=== PATIENT | female | born 1970 | race Caucasian/White ===

== ENCOUNTER → 2023-10-19 | Outpatient (CLI) | payer OTHER ==
--- NOTE | 2023-10-20 20:46 | MM ---
Reason for Exam: Screening (asymptomatic). Last mammogram was performed 5 year(s) and 7 month(s) ago. Patient History: Menarche at age 10. First Full-Term at age 17. Postmenopausal. Maternal grandmother had breast cancer. Risk Values: Andreina 5 year model risk: 0.8%. NCI Lifetime model risk: 6.1%. Prior Study Comparison: 10/12/2007 Bilateral Screening Mammogram, [facility]. 03/09/2018 Bilateral Screening Mammogram, [facility]. Tissue Density: There are scattered fibroglandular densities. Findings: Analyzed By CAD. Chronic nodularity on the left. There is no suspicious group of microcalcifications or new suspicious mass in either breast. Overall Assessment: Benign, BI-RAD 2 Management: Screening Mammogram of both breasts in 1 year. . Patient should continue monthly self-breast exams. A clinical breast exam by your physician is recommended on an annual basis. This exam should not preclude additional follow-up of suspicious palpable abnormalities. Note on Andreina scores and lifetime risk: 1. A Andreina score greater than 3% is considered moderate risk. If this is the case, consider specialist referral to assess eligibility for a risk reducing agent. 2. If overall lifetime risk for the development of breast cancer is 20% or higher, the patient may qualify for future screening with alternating mammogram and breast MRI. Electronically signed and approved by: Magalys Guerra M.D. Radiologist
== END | disposition home or self-care (01) ==
LOC: RADMAMWWP 15:28
PROVIDERS: ATTEND Obstetrics & Gynecology
DX: Z12.31 Encounter for screening mammogram for malignant neoplasm of breast (principal); Z80.3 Family history of malignant neoplasm of breast; Z78.0 Asymptomatic menopausal state
CPT/HCPCS: 77067

== ENCOUNTER → 2023-11-13 | Outpatient (CLI) | payer OTHER ==
--- NOTE | 2023-11-15 17:55 | MR ---
EXAMINATION TYPE: MR knee RT wo con DATE OF EXAM: 11/13/2023 COMPARISON: None HISTORY: 53-year-old female M25.561 Right knee pain/injury. TECHNIQUE: Multiplanar, multisequence imaging of the right knee is performed without IV contrast. FINDINGS: The ACL and PCL are intact. There is some thickening and inhomogeneous signal along the femoral attachment of the MCL suggesting a low-grade sprain. Similar findings are present at the femoral attachment of the LCL proper. LCL complex are otherwise i ntact. Lateral meniscus is intact. Mild diffuse thinning of lateral compartment articular cartilage volume. Medial meniscus shows abnormal signal throughout the posterior horn and body suggesting underlying me niscal tear. Mild diffuse thinning of medial compartment articular cartilage volume. There is moderate irregular cartilage loss along the mid patella. More moderate to severe irregular c artilage loss along the lateral trochlear facet with extensive disc of chondrosis cystic change. Less er degree of irregular cartilage loss and cystic change at the medial trochlear facet. Extensor mechanism is intact. Some mild inhomogeneous signal of the quadriceps insertion. Prepatellar soft tissue swelling. Some focal edema in Hoffa's fat located inferior and lateral to the patella. Small knee joint effusio n. No sizable Bennett's cyst. Normal popliteal artery anatomy and muscle bulk. No suspicious bone marrow replacement. IMPRESSION: 1. Grade 1 MCL sprain at the femoral attachment. Additional grade 1 sprain of the LCL proper at the f emoral attachment. 2. Tear of the posterior horn and body of the medial meniscus. 3. Moderate overall patellofemoral compartmental OA. Greatest cartilage loss and subchondral marrow s ignal change along the lateral trochlear facet. 4. Adjacent edema in Hoffa's fat which can be seen in the setting of fat pad impingement syndrome. 5. Mild quadriceps insertional tendinosis.
== END | disposition home or self-care (01) ==
LOC: RADMRIMAIN 14:01
PROVIDERS: ATTEND Family Medicine
DX: S83.241A Other tear of medial meniscus, current injury, right knee, initial encounter (principal)